=== PATIENT | male | born 1960 | race Caucasian/White ===

== ENCOUNTER → 2017-05-08 | Outpatient (CLI) | payer OTHER | LOC: FIMAGING 14:49 | PROVIDERS: ATTEND Internal Medicine Pulmonary Disease | DX: D86.9 Sarcoidosis, unspecified (principal); J45.30 Mild persistent asthma, uncomplicated ==

== ENCOUNTER 2017-12-26 07:35 | Emergency (ER) | payer OTHER ==
--- NOTE | 2017-12-26 08:01 | EDPHY ---
H & P Time Seen by Provider: 12/26/17 08:00 HPI/ROS: Chief complaint. Nausea, dizziness HPI. Patient is a 57-year-old male presents emergency department with dizziness and subsequent nausea that began this morning at about 5:30 a.m.. He was feeling well last night. He notes the dizziness is a spinning sensation and he is off balance prior. It is worse with standing, eyes open, head movement. No headache or upper respiratory symptoms. No chest discomfort or trouble breathing. Some abdominal pain from retching. He does not have a history of vertigo. ROS Constitutional. no fever/chills, no weakness Eyes. no problems with vision ENT. no sore throat, no nasal drainage Cardiovascular. no chest pain Respiratory. no shortness of breath, no cough Abdominal. Some abdominal pain from retching and nausea . no problems urinating MS. no calf pain/swelling, no neck/back pain, no joint pain Skin. no rash Lymph. no swollen glands Neuro. 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 He has had gastric for esophageal in her positioning. He is hypothyroid Social History: , nonsmoker, no alcohol Smoking Status: Never smoked Physical Exam: General Appearance: Alert pleasant well-developed male moderate distress vital signs are stable Eyes: Pupils equal round reactive. No nystagmus.. ENT, Mouth: Mucous membranes are moist. Respiratory: There are no retractions, lungs are clear to auscultation. Cardiovascular: Regular rate and rhythm. Gastrointestinal: Abdomen is soft and nontender, no masses, bowel sounds normal. Neurological: Awake and alert, sensory and motor exams grossly normal. Skin: Warm and dry, no rashes. Musculoskeletal: Neck is supple nontender. Extremities symmetrical, full range of motion. Psychiatric: Patient is oriented X 3, there is no agitation. Constitutional: Initial Vital Signs Temperature (C) 36.4 C 12/26/17 07:37 Heart Rate 78 12/26/17 07:37 Respiratory Rate 16 12/26/17 07:37 Blood Pressure 140/98 H 12/26/17 07:37 O2 Sat (%) 98 12/26/17 07:37 O2 Delivery Mode Room Air Allergies/Adverse Reactions: No Known Allergies Allergy (Unverified 12/26/17 07:36) Home Medications: Medication Instructions Recorded Cbd 12/26/17 LORazepam [Ativan] 1 mg PO Q6-8PRN PRN #7 tab 12/26/17 Meclizine HCl 25 mg PO Q6-8PRN PRN #10 tablet 12/26/17 Ondansetron Odt [Zofran Odt] 4 mg PO Q4PRN PRN #4 tab 12/26/17 Synthroid 12/26/17 Medical Decision Making - Diagnostics Imaging Results: Imaging Impressions Head CT 12/26/17 08:22 Impression: Normal CT scan of the head. Results called and discussed with ELAINE GUALLPA M.D. on 12/26/2017 at 8:[address] reviewed by me and discussed with Dr. Padron is normal Procedures: IV normal saline. Zofran and Ativan IV. Meclizine orally ED Course/Re-evaluation: Re-evaluation 8:50 a.m.--improving. The patient, his , and I discussed imaging, lab results. We discussed treatment plan. Plan is observation in the emergency department with the expectation symptoms will continue to improve. 10:15 a.m. Patient feels well his symptoms have largely resolved. He would like to be discharged. He is ambulated in the emergency department and does well and without symptoms Differential Diagnosis: This appears to be vertigo. I do not find any central component. With symptomatic treatment his symptoms have resolved. No evidence for intracranial bleeding or acute coronary syndrome. - Data Points Laboratory Results: Laboratory Results 12/26/17 08:10 12/26/17 08:10 12/26/17 12/26/17 08:10 08:10 WBC 5.38 10^3/uL 10^3/uL (3.80-9.50) RBC 5.23 10^6/uL 10^6/uL (4.40-6.38) Hgb 14.9 g/dL g/dL (13.7-17.5) Hct 44.0 % % (40.0-51.0) MCV 84.1 fL fL (81.5-99.8) MCH 28.5 pg pg (27.9-34.1) MCHC 33.9 g/dL g/dL (32.4-36.7) RDW 13.1 % % (11.5-15.2) Plt Count 175 10^3/uL 10^3/uL (150-400) MPV 10.4 fL fL (8.7-11.7) Neut % (Auto) 83.4 % H % (39.3-74.2) Lymph % (Auto) 7.8 % L % (15.0-45.0) [place] % (Auto) 7.1 % % (4.5-13.0) Eos % (Auto) 0.9 % % (0.6-7.6) Baso % (Auto) 0.4 % % (0.3-1.7) Nucleat RBC Rel Count 0.0 % % (0.0-0.2) Absolute Neuts (auto) 4.49 10^3/uL 10^3/uL (1.70-6.50) Absolute Lymphs (auto) 0.42 10^3/uL L 10^3/uL (1.00-3.00) Absolute Monos (auto) 0.38 10^3/uL 10^3/uL (0.30-0.80) Absolute Eos (auto) 0.05 10^3/uL 10^3/uL (0.03-0.40) Absolute Basos (auto) 0.02 10^3/uL 10^3/uL (0.02-0.10) Absolute Nucleated RBC 0.00 10^3/uL 10^3/uL (0-0.01) Immature Gran % 0.4 % % (0.0-1.1) Immature Gran # 0.02 10^3/uL 10^3/uL (0.00-0.10) RBC/WBC/PLT Morphology TNP Platelet Estimate TNP Sodium 142 mEq/L mEq/L (135-145) Potassium 3.9 mEq/L mEq/L (3.3-5.0) Chloride 103 mEq/L mEq/L (97-110) Carbon Dioxide 27 mEq/l mEq/l (22-31) Anion Gap 12 mEq/L mEq/L (8-16) BUN 20 mg/dL mg/dL (7-23) Creatinine 1.1 mg/dL mg/dL (0.7-1.3) Estimated GFR > 60 Glucose 186 mg/dL H mg/dL (70-100) Calcium 9.4 mg/dL mg/dL (8.5-10.4) Lipase 166 IU/L IU/L (23-300) Medications Given: Discontinued Medications Sodium Chloride (Ns) 1,000 mls @ 0 mls/hr IV EDNOW ONE; Wide Open PRN Reason: Protocol Stop: 12/26/17 08:22 Last Admin: 12/26/17 08:29 Dose: 1,000 mls Lorazepam (Ativan Injection) 1 mg IVP EDNOW ONE Stop: 12/26/17 08:22 Last Admin: 12/26/17 08:29 Dose: 1 mg Meclizine HCl (Meclizine Hcl) 25 mg PO EDNOW ONE Stop: 12/26/17 08:23 Last Admin: 12/26/17 09:13 Dose: 25 mg Ondansetron HCl (Zofran) 4 mg IVP EDNOW ONE Stop: 12/26/17 08:22 Last Admin: 12/26/17 08:29 Dose: 4 mg Departure - Departure Disposition: Home, Routine, Self-Care Clinical Impression: Vertigo Condition: Good Instructions: Vertigo (ED) Additional Instructions: Use medication if needed for dizziness. Zofran if needed for nausea and vomiting Meclizine and Ativan as needed for dizziness Return for worsening symptoms. Recheck in 1 day for continuing symptoms Referrals: Quin Garcia MD [Primary Care Provider] - 1 day, if not improved Prescriptions: LORazepam [Ativan] 1 mg PO Q6-8PRN PRN #7 tab PRN Reason: Dizziness Meclizine HCl 25 mg PO Q6-8PRN PRN #10 tablet PRN Reason: Dizziness Ondansetron Odt [Zofran Odt] 4 mg PO Q4PRN PRN #4 tab PRN Reason: Nausea/Vomiting, Use 1st
[2017-12-26] MEDS ORDERED: ONDANSETRON 4 MG/2 ML VIAL IVP ONE (08:21)
[2017-12-26] MEDS ORDERED: NS 1,000 ML IV ONE (08:21)
[2017-12-26] MEDS ORDERED: LORazepam 2 MG/ML INJ IVP ONE (08:21)
[2017-12-26] MEDS ORDERED: MECLIZINE HCL 25 MG TAB PO ONE (08:22)
[2017-12-26 08:28] LABS: PLATELET COUNT 175 10^3/uL (150-400)
[2017-12-26 10:39] VITALS: BP 131/87
== END 2017-12-26 10:38 | disposition home or self-care (01) ==
DX: R42 Dizziness and giddiness (principal); E86.9 Volume depletion, unspecified; Z85.028 Personal history of other malignant neoplasm of stomach
CPT/HCPCS: 96374; J2060; J2405

== ENCOUNTER → 2018-10-10 | Outpatient (CLI) | payer OTHER ==
[~2018-10-10] MED LIST: GADOBUTROL 10 ML VIAL IVP ONE
== END ==
LOC: FIMAGING 09:42
PROVIDERS: ATTEND Internal Medicine Hematology & Oncology
DX: R16.0 Hepatomegaly, not elsewhere classified (principal); K80.20 Calculus of gallbladder without cholecystitis without obstruction; D73.89 Other diseases of spleen; C49.A0 Gastrointestinal stromal tumor, unspecified site; D86.9 Sarcoidosis, unspecified
CPT/HCPCS: A9585